=== PATIENT | female | born 1945 | race Caucasian/White ===

== ENCOUNTER 2017-02-01 06:25 | Day surgery (SDC) | payer MEDICARE, OTHER ==
--- NOTE | ~2017-02-01 | EGD ---
EGD REPORT [facility] [address] [id number] NAME: DREW SALAZAR : [birth year] STATUS : REG [facility]#: [id number] AGE: 71 ADM/REG DATE : 02/01/17 MR#: [id number] REPORT SERV DATE: 02/01/17 DICTATED BY: ESTUARDO PAEZ DATE: 02/01/17 REPORT STATUS : Draft TRANSCRIBED BY: [facility] DATE: 02/01/17 [facility] Patient Name: Drew Salazar Date of : 1945 Attending MD: ESTUARDO PAEZ MD Procedure Date No Time: 02/01/2017 Procedure: Colonoscopy Indications: High risk colon cancer surveillance: Personal history of colonic polyps, Last colonoscopy: 2013 Referring MD: BLANCA JACKSON Medicines: See the Anesthesia note for documentation of the administered medications Complications: No immediate complications. Procedure: Pre-Anesthesia Assessment: - ASA Grade Assessment: III - A patient with severe systemic disease. After I obtained informed consent, the scope was passed under direct vision. Throughout the procedure, the patient's blood pressure, pulse, and oxygen saturations were monitored continuously. The PCF [id number] was introduced through the anus and advanced to the terminal ileum, with identification of the appendiceal orifice and IC valve. The colonoscopy was performed without difficulty. The patient tolerated the procedure well. The quality of the bowel preparation was adequate. Findings: The perianal and digital rectal examinations were normal. The terminal ileum appeared normal. Internal hemorrhoids were found during retroflexion and were small. A sessile polyp was found in the cecum. The polyp was small in size. The polyp was removed with a cold biopsy forceps. Resection and retrieval were complete. Impression: - The examined portion of the ileum was normal. - Internal hemorrhoids. - One small polyp in the cecum. Resected and retrieved. Recommendation: - Patient has a contact number available for emergencies. The signs and symptoms of potential delayed complications were discussed with the patient. Return to normal activities tomorrow. Written discharge instructions were provided to the patient. - Regular diet. - Continue present medications. EGD REPORT [address] [address] NAME: DREW SALAZAR : [birth year] STATUS : REG [facility] [place] PAT#: [id number] AGE: 71 ADM/REG DATE : 02/01/17 MR#: [id number] REPORT SERV DATE: 02/01/17 DICTATED BY: ESTUARDO PAEZ DATE: 02/01/17 REPORT STATUS : Draft TRANSCRIBED BY: [employer] DATE: 02/01/17 - Repeat colonoscopy in 5 years for surveillance. - Restart coumadin today and get INR in one week by your physician - FOR YOUR BIOPSY RESULTS: Please go to [email or web address] and register to receive your results via the portal. Your biopsy results will be posted there in about 7 to 10 days. IF you do not see result in 10 days, call office. Procedure Code(s): --- Professional --- 20743, Colonoscopy, flexible, proximal to splenic flexure; with biopsy, single or multiple Diagnosis Code(s): --- Professional --- K64.8, Other hemorrhoids D12.0, Benign neoplasm of cecum Z86.010, Personal history of colonic polyps CPT copyright 2013 [employer]. All rights reserved. The codes documented in this report are preliminary and upon mva operator review may be revised to meet current compliance requirements. Estuardo Paez MD ESTUARDO PAEZ MD 02/01/2017 8:40 AM This report has been signed electronically. Number of Addenda: 0 Note Initiated On: 02/01/2017 8:13 AM Scope Withdrawal Time 0 hours 9 minutes 45 seconds [address] [place] [id number]
[~2017-02-01 06:25] MED LIST: AMARYL2 PO; AMIT10 PO; ASAB PO; ATEN50 PO; BENICAR20 PO; CALTRA600D PO; COZAAR100 MG PO; GLUCPH PO; HORMONE PATCH TD; JANTOVEN4 MG PO; LAN25 PO; MULTIVITAMI1 PO; NEUR300 PO; PRILOSEC40 MG PO; TYLENOL PM PO; ZOCOR20 PO; ZOVI800 PO
== END 2017-02-01 23:59 | disposition home or self-care (01) ==
LOC: DMU 06:25
PROVIDERS: Internal Medicine Gastroenterology
PROC: 0DBH8ZZ Excision of Cecum, Via Natural or Artificial Opening Endoscopic (ICD-10-PCS; principal; 2017-02-01 08:00)
DX: Z12.11 Encounter for screening for malignant neoplasm of colon (principal); D12.0 Benign neoplasm of cecum; K64.8 Other hemorrhoids; I48.91 Unspecified atrial fibrillation; Z79.01 Long term (current) use of anticoagulants; I10 Essential (primary) hypertension; M19.90 Unspecified osteoarthritis, unspecified site; K21.9 Gastro-esophageal reflux disease without esophagitis; B02.29 Other postherpetic nervous system involvement; E11.9 Type 2 diabetes mellitus without complications; Z79.899 Other long term (current) drug therapy; Z79.84 Long term (current) use of oral hypoglycemic drugs
CPT/HCPCS: 82962; 88305

== ENCOUNTER 2017-04-26 14:13 | Emergency (ER) | payer MEDICARE, OTHER ==
[2017-04-26 12:55] LABS: BASOPHILS 0.2 %; BASOPHILS ABSOLUTE 0.03 10/3/uL (0.0-0.16); EOSINOPHILS 1.6 %; EOSINOPHILS ABSOLUTE 0.23 10/3/uL (0.0-0.53); HEMATOCRIT 38.5 % (36.0-48.0); HEMOGLOBIN 12.7 g/dL (12.0-16.0); IMMATURE GRANULOCYTES 0.2 %; IMMATURE GRANULOCYTES ABSOLUTE 0.03 10/3/uL (0.0-0.11); LYMPHOCYTES 11.2 %; LYMPHOCYTES ABSOLUTE 1.59 10/3/uL (0.67-4.30); MEAN CORPUSCULAR HEMOGLOB 28.9 pg (26.0-34.0); MEAN CORPUSCULAR VOLUME 87.5 fL (80-100); MEAN PLATELET VOLUME 9.4 fL (9.2-13.0); MONOCYTES 8.3 %; MONOCYTES ABSOLUTE 1.17 10/3/uL (0.21-1.20); NEUTROPHILS 78.5 %; PLATELET COUNT 192 10/3/uL (150-400); RBC DISTRIBUTION WIDTH 14.2 % (12.0-16.0); WHITE BLOOD CELLS 14.2 10/3/uL (4.5-10.5)
[2017-04-26 12:56] LABS: MANUAL DIFF NO %
[2017-04-26 13:12] LABS: ASCORBIC ACID (UR NOT ORDER) NEG (NEG); BILIRUBIN, URINE NEGATIVE (NEG); ER URINALYSIS TAT 0 Hrs 21 Mins; KETONE, URINE NEGATIVE (NEG); LEUKOCYTE ESTERASE(NOT OR LARGE (NEG); NITRITE (URINE) POS (NEG)
[2017-04-26 13:13] LABS: A/G RATIO 1.3 (0.7-1.9); ALBUMIN 3.9 G/DL (3.5-5.0); ALKALINE PHOSPHATASE 54 U/L (45-117); BUN (BLOOD UREA NITROGEN) 11 MG/DL (6-23); CALCIUM, SERUM 8.9 MG/DL (8.5-10.4); CHLORIDE, SERUM 108 MMOL/L (96-112); CO2 (CARBON DIOXIDE) 29 MMOL/L (24-34); CREATININE 0.93 MG/DL (0.55-1.02); GFR AFRICAN AMERICAN 72 ML/MIN (>=60); GFR NON AFRICAN AMERICAN 62 ML/MIN (>=60); GLOBULIN 3.1 G/DL (2.5-4.1); POTASSIUM, SERUM 4.1 MMOL/L (3.5-5.3); SGOT(AST) 20 U/L (5-40); SGPT(ALT) 25 U/L (5-65); SODIUM, SERUM 143 MMOL/L (135-148); TOTAL BILIRUBIN 0.6 MG/DL (0-1.2)
[2017-04-26 13:13] LABS: WBC (NOT ORDERED) (RFLEX) > 182 (0-5)
[2017-04-26 13:14] LABS: GLUCOSE, SERUM 156 MG/DL (60-99)
== END 2017-04-26 17:49 | disposition home or self-care (01) ==
LOC: ER 14:13
PROVIDERS: Emergency Medicine
DX: N39.0 Urinary tract infection, site not specified (principal); I48.91 Unspecified atrial fibrillation; E11.9 Type 2 diabetes mellitus without complications; Z88.1 Allergy status to other antibiotic agents; Z88.5 Allergy status to narcotic agent; Z88.8 Allergy status to other drugs, medicaments and biological substances; Z79.82 Long term (current) use of aspirin; Z79.01 Long term (current) use of anticoagulants; Z79.84 Long term (current) use of oral hypoglycemic drugs; Z79.899 Other long term (current) drug therapy
CPT/HCPCS: 74176; 80053; 81001; 85025; 87077; 87086; 87186; 96374; 99284; A9270-GY; J0696